=== PATIENT | male | born 1990 | race Caucasian/White ===

== ENCOUNTER 2020-01-20 14:46 | Outpatient (CLI) | payer MEDICAID, SELFPAY ==
--- NOTE | 2020-01-20 13:00 | DI.RAD_ITS ---
EXAM: XR SHOULDER LT COMPLETE 2+V CLINICAL HISTORY: Pain TECHNIQUE: COMPARISON: No exams were available for comparison FINDINGS: Two views were obtained. No bony or soft tissue abnormality seen. IMPRESSION:
== END 2020-01-20 15:06 ==
PROVIDERS: PCP Family Medicine; Visit Provider Student in an Organized Health Care Education/Training Program
DX: M25.512 Pain in left shoulder (principal)
CPT/HCPCS: 73030

== ENCOUNTER 2023-05-11 10:03 | Emergency (ER) | payer MEDICAID, SELFPAY ==
[2023-05-11 10:16] VITALS: BP 112/78; PULSE 81; RESP 18; TEMP 36.8; O2SAT 98
--- NOTE | 2023-05-11 10:30 | DI.RAD_ITS ---
Exam(s) XR ANKLE RT COMPLETE EXAM: XR ANKLE RT COMPLETE CLINICAL HISTORY: Right ankle pain. TECHNIQUE: 2D digital imaging was performed. Three views. COMPARISON: No exams were available for comparison FINDINGS: BONES: No acute fracture is present. No bony destructive lesion is seen. JOINTS: The ankle mortise is normally aligned. SOFT TISSUE: Swelling IMPRESSION: Soft tissue swelling. DATA REPOSITORY: RADIATION DOSE DELIVERED:
--- NOTE | 2023-05-11 10:56 | DI.VRAD_ITS ---
PROCEDURE INFORMATION: Exam: XR Right Ankle Exam date and time: 05/11/2023 10:45 AM Age: 33 years old Clinical indication: Pain; Ankle; Right TECHNIQUE: Imaging protocol: Radiologic exam of the right ankle. Views: 3 or more views. Non-weightbearing AP, oblique and lateral images. COMPARISON: No relevant prior studies available. FINDINGS: Bones/joints: Bones are well mineralized. The ankle mortise is intact. Examination negative for fracture or dislocation. Soft tissues: Mild soft tissue edema. IMPRESSION: Nonspecific soft tissue edema without evidence fracture or dislocation. Dictated and Authenticated by: Luis Chopra MD. Ordering:SALEEM Griffith MD
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
== END 2023-05-11 12:40 | disposition home or self-care (01) ==
PROVIDERS: Emergency Provider Emergency Medicine; PCP Family Medicine
DX: S93.401A Sprain of unspecified ligament of right ankle, initial encounter (principal); W18.49XA Other slipping, tripping and stumbling without falling, initial encounter; Y93.01 Activity, walking, marching and hiking; Y99.9 Unspecified external cause status
CPT/HCPCS: 99283; 73610

== ENCOUNTER 2025-05-29 14:15 | Emergency (ER) | payer MEDICARE, MEDICAID, SELFPAY ==
[2025-05-29 14:18] VITALS: BP 138/98; PULSE 93; RESP 14; TEMP 36.6; O2SAT 98
--- NOTE | 2025-05-29 14:30 | DI.RAD_ITS ---
Exam(s) XR ANKLE LT COMPLETE EXAM: XR ANKLE LT COMPLETE CLINICAL HISTORY: lateral ankle pain TECHNIQUE: 2D digital imaging was performed. Three views. COMPARISON: CR,XR XR ANKLE RT COMPLETE from 05/11/2023 FINDINGS: BONES: No acute fracture is present. No bony destructive lesion is seen. JOINTS:The ankle mortise is normally aligned. SOFT TISSUE: Marked soft tissue swelling. IMPRESSION: Marked soft tissue swelling. No evidence of fracture or ankle mortise widening. DATA REPOSITORY: RADIATION DOSE DELIVERED:
--- NOTE | 2025-05-29 14:30 | DI.RAD_ITS ---
Exam(s) XR FOOT LT COMPLETE EXAM: XR FOOT LT COMPLETE CLINICAL HISTORY: pain. TECHNIQUE: 2D digital imaging was performed. Three views. COMPARISON: No exams were available for comparison FINDINGS: BONES: No acute fracture is present. No bony destructive lesion is seen. JOINTS: No dislocation present. SOFT TISSUE: Diffuse swelling. No foreign body. IMPRESSION: Soft tissue swelling. No bony abnormality. The preliminary [facility] report was reviewed. DATA REPOSITORY: RADIATION DOSE DELIVERED:
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
[2025-05-29] MEDS: Ibuprofen 600 MG TAB PO (15:11)
--- NOTE | 2025-05-29 16:05 | DI.[facility]AD_ITS ---
PROCEDURE INFORMATION: Exam: XR Left Foot Exam date and time: 05/29/2025 2:59 PM Age: 35 years old Clinical indication: Pain; Foot; Left TECHNIQUE: Imaging protocol: Radiologic exam of the left foot. Views: 3 or more views. COMPARISON: CR XR ANKLE LT COMPLETE 05/29/2025 2:56 PM FINDINGS: Bones/joints: Normal. Soft tissues: There is diffuse soft tissue swelling in the dorsum of the foot. IMPRESSION: Soft tissue swelling noted. No acute bony abnormality. Dictated and Authenticated by: Nataliya Roman MD. Orderin Castillo Yan MD
--- NOTE | 2025-05-29 16:08 | DI.VRAD_ITS ---
PROCEDURE INFORMATION: Exam: XR Left Ankle Exam date and time: 05/29/2025 2:56 PM Age: 35 years old Clinical indication: Pain; Ankle; Left TECHNIQUE: Imaging protocol: Radiologic exam of the left ankle. Views: 3 or more views. COMPARISON: No relevant prior studies available. FINDINGS: Bones/joints: There is by malleolar soft tissue swelling, lateral worse than medial. Soft tissues: See Bones/joints finding. IMPRESSION: Soft tissue swelling. No acute bony abnormality. Dictated and Authenticated by: Nataliya Roman MD. Orderin Castillo Yan MD
== END 2025-05-29 16:45 | disposition home or self-care (01) ==
PROVIDERS: Emergency Provider Emergency Medicine; PCP Family Medicine
DX: S99.812A Other specified injuries of left ankle, initial encounter (principal); S99.822A Other specified injuries of left foot, initial encounter; E78.00 Pure hypercholesterolemia, unspecified; Q87.19 Other congenital malformation syndromes predominantly associated with short stature; X58.XXXA Exposure to other specified factors, initial encounter; Z87.891 Personal history of nicotine dependence
CPT/HCPCS: 99283; 73610; 73630